=== PATIENT | male | born 1985 | race Caucasian/White ===

== ENCOUNTER → 2024-04-04 14:49 | Outpatient (REF) | payer MEDICARE, MEDICAID, SELFPAY | LOC: RCS 14:49 | PROVIDERS: ATTENDING PHYSICIAN Internal Medicine Cardiovascular Disease; FAMILY PHYSICIAN Family Medicine | DX: Z98.890 Other specified postprocedural states (principal); Q24.9 Congenital malformation of heart, unspecified; Q21.0 Ventricular septal defect; Z87.74 Personal history of (corrected) congenital malformations of heart and circulatory system | CPT/HCPCS: 93306 ==